=== PATIENT | female | born 1970 | race Caucasian/White ===

== ENCOUNTER 2022-07-18 17:38 | Outpatient (CLI) | payer OTHER, SELFPAY ==
[2022-07-18 21:52] LABS: Vitamin D 25 Hydroxy* 77 ng/mL (30-80)
[2022-07-20 19:57] LABS: TSH Receptor Antibody < 0.80 IU/L (<=1.75); Total T3 67 ng/dL (80-200)
[2022-07-22 19:45] LABS: T3 Reverse - LC-MS/MS 9.7 ng/dL (9.0-27.0); T3, Ratio (T3:RT3) 7.9 (4.2-11.0); T3, Total - LC-MS/MS 77 ng/dL (80-200)
== END 2022-07-18 17:39 | disposition home or self-care (01) ==
PROVIDERS: PCP Family Medicine; Visit Provider Family Medicine
DX: E07.9 Disorder of thyroid, unspecified (principal); R41.89 Other symptoms and signs involving cognitive functions and awareness; R53.83 Other fatigue
CPT/HCPCS: 82306; 83520; 84443; 84480; 84482

== ENCOUNTER 2022-09-01 14:35 | Outpatient (CLI) | payer OTHER, SELFPAY ==
[2022-09-01 22:51] LABS: Free T4 Free Thyroxine* 1.13 ng/dL (0.70-1.85)
[2022-09-01 23:05] LABS: Thyroid Stimulating Hormone* 0.051 uIU/mL (0.270-4.20)
== END 2022-09-01 14:36 | disposition home or self-care (01) ==
PROVIDERS: PCP Family Medicine; Visit Provider Family Medicine
DX: R41.89 Other symptoms and signs involving cognitive functions and awareness (principal)
CPT/HCPCS: 84439; 84443

== ENCOUNTER 2022-10-13 13:50 | Outpatient (CLI) | payer OTHER, SELFPAY ==
[2022-10-13 22:20] LABS: Chloride* 103 mmol/L (96-114)
[2022-10-13 22:21] LABS: Albumin* 4.9 g/dL (3.3-5.0); Potassium* 3.8 mmol/L (3.6-5.1); Sodium* 141 mmol/L (135-149)
[2022-10-13 22:24] LABS: Alanine Aminotransferase* 22 U/L (4-35); Alkaline Phosphatase* 67 U/L (40-150); Aspartate Amino Transferase* 28 U/L (12-35); Bilirubin Total* 0.9 mg/dL (0.1-1.5); Blood Urea Nitrogen* 12 mg/dL (7-30); Calcium* 9.9 mg/dL (8.4-10.6); Carbon Dioxide* 29 mmol/L (20-32); Creatinine* 0.7 mg/dL (0.5-1.5); Estimated Glomerular Filt Rate 103 ml/min; Glucose* 133 mg/dL (60-115); Total Protein* 8.1 g/dL (6.0-8.3)
[2022-10-13 23:02] LABS: TSH With Reflex to FT4* < 0.015 uIU/mL (0.270-4.200)
[2022-10-13 23:17] LABS: Vitamin B12* 802 pg/mL (243-894)
[2022-10-14 09:13] LABS: Free T4 Free Thyroxine* 0.87 ng/dL (0.70-1.85)
[2022-10-16 07:56] LABS: Follicle Stimulating Hormone 89.3 IU/L
== END 2022-10-13 13:51 | disposition home or self-care (01) ==
PROVIDERS: PCP Family Medicine; Visit Provider Family Medicine
DX: Z00.00 Encounter for general adult medical examination without abnormal findings (principal); R41.89 Other symptoms and signs involving cognitive functions and awareness; I10 Essential (primary) hypertension; Z79.899 Other long term (current) drug therapy
CPT/HCPCS: 80053; 82607; 83001; 84439; 84443